=== PATIENT | male | born 1995 | race Caucasian/White ===

== ENCOUNTER 2018-03-27 03:39 | Emergency (ER) | payer OTHER ==
--- NOTE | 2018-03-27 04:13 | ER Document Report ---
HPI - HPI Pain Level: 3 Notes: Patient is a 26-year-old male no significant past medical history who presents to the ED complaining ofstatus post injury about an hour and a half ago. Patient states that he was floor wrestling with 1 of his friends when he got kneed in the nose. Patient states that he had bleeding immediately after that has since resolved. Patient states that he noticed some swelling to the right side of his nose and that his nose may be a little bit crooked. Patient states that he can still breathe through his nares bilaterally otherwise without difficulty. Patient did not have any loss of consciousness, nausea/vomiting. Patient states he has no other concern of pain at this time. He denies any drug allergies or IV drug use. Denies any alcohol involvement. Denies any headache, fever, neck pain, changes in vision/speech/mentation/hearing, URI, sore throat, chest pain, palpitations, syncope, cough, shortness of breath, wheeze, dyspnea, abdominal pain, nausea/vomiting/diarrhea, urinary retention, dysuria, hematuria, loss of control of bowel or bladder, numbness/tingling, muscle paralysis/weakness, or rash. - ROS Systems Reviewed and Negative: Yes All other systems reviewed and negative Past Medical History - Social History Smoking Status: Never Smoker Family History: Reviewed & Not Pertinent Vertical Provider Document - CONSTITUTIONAL Agree With Documented VS: Yes Notes: PHYSICAL EXAMINATION: accompanied by female nurse GENERAL: Well-appearing, well-nourished and in no acute distress. A&Ox4. Answers questions appropriately. HEAD: Atraumatic, normocephalic. Non-tender. No wheeler sign. No bogginess/ hematoma. EYES: Pupils equal round and reactive to light, extraocular movements intact, sclera anicteric, conjunctiva are normal. No raccoon eyes/entrapment. No nystagmus. ENT: EAC clear b/l. TM's intact b/l without erythema, fluid, or perforation. Nares patent and with dry/stagnant bloody discharge. oropharynx clear without exudates. No tonsilar hypertrophy or erythema. Moist mucous membranes. No sinus tenderness. No hemotympanum/CSF discharge. Face/nose: Pt does have noted mild swelling rt side of nose and his nose does appear slightly crooked; although, there could be distortion due to swelling. + mild tenderness rt side of nose. No zygomatic or orbital tenderness. No tenderness to maxilla or mandible. NECK: Normal range of motion, supple without lymphadenopathy. No rigidity. No midline tenderness. NEXUS negative. LUNGS: Breath sounds clear to auscultation bilaterally and equal. No wheezes rales or rhonchi. HEART: Regular rate and rhythm without murmurs, rubs, gallops. Musculoskeletal: Ext b/l: FROM to passive/active. Strength 5+/5. No deficits noted. Extremities: No cyanosis, clubbing, or edema b/l. Peripheral pulses 2+. Capillary refill less than 2 seconds. NEUROLOGICAL: NIH 0. GCS 15. Cranial nerves grossly intact. Normal speech, normal gait. Normal sensory, motor exams. PSYCH: Normal mood, normal affect. SKIN: Warm, Dry, normal turgor, no rashes or lesions noted. - INFECTION CONTROL TRAVEL OUTSIDE OF THE [place] IN LAST 30 DAYS: No Course - Re-evaluation Re-evalutation: 03/27/18 05:05 Patient is an afebrile, well-hydrated, 23-year-old male who presents to the ED with nose pain with probable fracture based on x-ray today. Vitals are acceptable. PE is otherwise unremarkable for any focal neurological deficits. Patient is nontoxic-appearing is tolerating p.o. without difficulties. Low suspicion for any septal hematoma at this time, severely displaced fracture, open fracture, acute intracranial pathology, or other systemic emergent condition at this time. See x-ray result. Advised patient that he will need to call ENT on Wednesday to schedule an appointment for further evaluation and management. Recheck with your PCM this week as well. Return to the ED with any worsening/concerning symptoms otherwise as reviewed in discharge. Patient is in agreement. - Vital Signs Vital signs: Temp Pulse Resp BP Pulse Ox 98.8 F 106 H 18 143/85 H 97 03/27/18 03:44 03/27/18 03:44 03/27/18 03:44 03/27/18 03:44 03/27/18 03:44 Discharge - Discharge Clinical Impression: Nasal bone fracture Qualifiers: Encounter type: initial encounter Fracture type: closed Qualified Code(s): S02.2XXA - Fracture of nasal bones, initial encounter for closed fracture Condition: Stable Disposition: HOME, SELF-CARE Instructions: Fracture of the Nose ([facility]) Additional Instructions: Directions per hand-out. Call ENT on Wednesday to schedule an appointment for further evaluation and management Return to the ED with any worsening symptoms and/or development of fever, headache, changes in behavior/mentation/vision/speech, chest pain, palpitations , syncope, shortness of breath, trouble breathing, abdominal pain, n/v/d, blood in stool/urine, loss of control of bowel/bladder, urinary retention, muscle weakness/paralysis, saddle anesthesia, numbness/tingling, or other worsening symptoms that are concerning to you. Prescriptions: Cephalexin Monohydrate [Keflex 500 mg Capsule] 500 mg PO BID #14 capsule Forms: Elevated Blood Pressure Referrals: SHIV GUARDADO MD [ACTIVE STAFF] - Follow up as needed PAUL FUNEZ DO [ASSOCIATE] - Follow up in 3-5 days
--- NOTE | 2018-03-27 04:30 | RADIOLOGY REPORT (SQ) ---
EXAM DESCRIPTION: Nasal bone radiographs 03/27/2018 3:27 AM CDT CLINICAL HISTORY: 23 years, Male, pain/swelling s/p injury to nose COMPARISON: FINDINGS: There are symmetric lucency at the base of the bilateral nasal bones.. There is otherwise no displaced fracture or dislocation. There is no significant soft tissue swelling. The bony alignment is normal. Limited evaluation of the paranasal sinuses and mastoid air cells demonstrate no gross abnormalities. IMPRESSION: Symmetric lucency at the base of the bilateral nasal bones, may represent nondisplaced fracture versus normal variant appearance, recommend correlation with focal pain.
[2018-03-27 06:12] VITALS: BP 119/68
== END 2018-03-27 06:12 | disposition home or self-care (01) ==
LOC: ER 03:39
DX: S02.2XXA Fracture of nasal bones, initial encounter for closed fracture (principal); W50.0XXA Accidental hit or strike by another person, initial encounter; Y93.83 Activity, rough housing and horseplay
CPT/HCPCS: 70160; 99283